=== PATIENT | female | born 1960 | race African-American/Black ===

== ENCOUNTER 2017-03-05 13:32 | Inpatient (IN) ==
[2017-03-05] MEDS ORDERED: METOPROLOL TARTRATE 5 MG/5 ML VIAL IV STA ×2 (14:39→18:38)
[2017-03-05] MEDS ORDERED: METOPROLOL TARTRATE 5 MG/5 ML VIAL IV ONE ×2 (14:56→18:29)
[2017-03-05 15:18] LABS: Basophils # 0.1 10*3/uL (0.0-0.2); Basophils % 0.7 % (0.0-0.8); Eosinophils # 0.1 10*3/uL (0.0-0.87); Eosinophils % 0.8 % (0.00-10.9); Hematocrit 44.6 VOL% (35.7-47.0); Immature Granulocytes % 0.3 %; Immature Granulocytes Absolute 0.02 #; Lymphocytes # 1.6 10*3/uL (1.4-4.0); Lymphocytes % 20.8 % (21.3-54.2); Mean Corpuscular HGB Conc 33.6 GM/DL (32-36); Mean Corpuscular Hemoglobin 27 PG (27-34); Mean Corpuscular Volume 80.9 FL (87-102); Mean Platelet Volume 10.5 FL (9.6-12.0); Monocytes # 0.4 10*3/uL (0.11-0.8); Monocytes % 5.9 % (1.7-12.7); Neutrophils # 5.4 10*3/uL (1.4-7.4); Neutrophils % 71.5 % (38.7-73.9); Platelet Count 291 T/CUMM (130-400); Red Blood Count 5.51 MC/CUMM (3.8-5.5); Red Cell Distribution Width 13.9 % (9.3-17.3); White Blood Count 7.5 T/CUMM (4-12)
[2017-03-05 15:28] LABS: INR 1.1; PT Patient Result 11.3 SECS; Partial Thromboplastin Time 27.3 SECS (0-40)
[2017-03-05 15:42] LABS: Alanine Aminotransferase 32 U/L (13-56); Albumin 4.3 G/DL (3.4-5.0); Alkaline Phosphatase 140 U/L (45-117); Aspartate Amino Transferase 22 U/L (0-37); Calcium 9.6 MG/DL (8.5-10.1); Total Protein 8.6 G/DL (6.4-8.3)
[2017-03-05 15:43] LABS: Blood Urea Nitrogen 13 MG/DL (7-18); Glucose 248 MG/DL (74-106); Osmolality,Calculated 282.7 MOS/KG (273-304); Potassium 3.5 MMOL/L (3.5-5.1); Sodium 138 MMOL/L (136-145); Troponin I Only < 0.015 NG/ML (0.00-0.045)
[2017-03-05] MEDS ORDERED: DOCUSATE SODIUM 100 MG CAPSULE PO PRN (18:00)
[2017-03-05] MEDS ORDERED: LACTULOSE 20 GM/30 ML UDCUP PO PRN (18:00)
[2017-03-05] MEDS ORDERED: ZALEPLON 5 MG CAPSULE PO PRN (18:00)
[2017-03-05] MEDS ORDERED: MAGNESIUM SULF RIDER 4 GM in PREMIX 1 EACH IV PRN (18:00)
[2017-03-05] MEDS ORDERED: ACETAMINOPHEN 325 MG TABLET PO PRN (18:00)
[2017-03-05] MEDS ORDERED: POTASSIUM CHLORIDE RIDER 20 MEQ in PREMIX 1 EACH IV PRN (18:00)
[2017-03-05] MEDS ORDERED: ONDANSETRON 4 MG/2 ML VIAL IV PRN (18:00)
[2017-03-05] MEDS ORDERED: POTASSIUM CHLORIDE RIDER 10 MEQ in PREMIX 1 EACH IV PRN (18:00)
[2017-03-05] MEDS ORDERED: MAGNESIUM SULF RIDER 2 GM in PREMIX 1 EACH IV PRN (18:00)
[2017-03-05] MEDS ORDERED: FUROSEMIDE 40 MG/4 ML VIAL IV STA (18:06)
[2017-03-05] MEDS ORDERED: FUROSEMIDE 40 MG/4 ML VIAL ONE (18:13)
[2017-03-05] MEDS ORDERED: POTASSIUM CHLORIDE 20 MEQ TABLET PO STA (18:15)
[2017-03-05] MEDS ORDERED: POTASSIUM CHLORIDE 20 MEQ TABLET PO ONE (18:29)
[2017-03-05] MEDS: ROSUVASTATIN 20 MG TABLET PO SCH (21:12)
[2017-03-05] MEDS: ENOXAPARIN 40 MG/0.4 ML SYRINGE SUBCUT SCH (21:12)
[2017-03-05] MEDS: INSULIN REGULAR 100 UNIT/ML SUBCUT SCH (21:18)
[2017-03-05] MEDS: INSULIN GLARGINE 100 UNIT/ML SUBCUT SCH (21:18)
[2017-03-06] MEDS ORDERED: ceFAZolin 1,000 MG in SYRINGE 1 EACH IV ONE (06:00)
[2017-03-06] MEDS ORDERED: ceFAZolin 1,000 MG VIAL IRRIG ONE (06:00)
[2017-03-06 06:04] LABS: Basophils % 0.4 % (0.0-0.8); Eosinophils # 0.2 10*3/uL (0.0-0.87); Eosinophils % 1.9 % (0.00-10.9); Hematocrit 42.9 VOL% (35.7-47.0); Hemoglobin 14.3 GM/DL (12.0-16.0); Immature Granulocytes % 0.2 %; Immature Granulocytes Absolute 0.02 #; Lymphocytes # 2.4 10*3/uL (1.4-4.0); Lymphocytes % 29.5 % (21.3-54.2); Mean Corpuscular HGB Conc 33.3 GM/DL (32-36); Mean Corpuscular Hemoglobin 27 PG (27-34); Mean Platelet Volume 10.6 FL (9.6-12.0); Monocytes # 0.7 10*3/uL (0.11-0.8); Monocytes % 8.8 % (1.7-12.7); Neutrophils # 4.9 10*3/uL (1.4-7.4); Neutrophils % 59.2 % (38.7-73.9); Platelet Count 285 T/CUMM (130-400); Red Blood Count 5.23 MC/CUMM (3.8-5.5); Red Cell Distribution Width 14.1 % (9.3-17.3); White Blood Count 8.3 T/CUMM (4-12)
[2017-03-06 06:36] LABS: Calcium 9.3 MG/DL (8.5-10.1); Osmolality,Calculated 282.4 MOS/KG (273-304); Potassium 3.4 MMOL/L (3.5-5.1)
[2017-03-06] MEDS ORDERED: LIDOCAINE 1% 20 ML VIAL ONE (07:47)
[2017-03-06] MEDS ORDERED: ceFAZolin 1,000 MG VIAL ONE (07:47)
[2017-03-06] MEDS ORDERED: HEPARIN DRIP 25,000 UNITS/500 ML PREMIX IV ONE (07:47)
[2017-03-06] MEDS ORDERED: LIRAGLUTIDE SUBCUT SCH (09:00)
[2017-03-06] MEDS ORDERED: TISSUE ADHESIVE 1 EACH APPLICATOR TOP ONE (10:44)
[2017-03-06] MEDS ORDERED: oxyCODONE/ACETAMINOPHEN 5-325 MG TABLET PO PRN (10:52)
[2017-03-06] MEDS ORDERED: PHENYLEPHRINE DRIP 20 MG/250 ML PREMIX IV ONE (11:26)
[2017-03-06] MEDS ORDERED: PROPOFOL 200 MG/20 ML VIAL IV ONE (11:26)
[2017-03-06] MEDS ORDERED: SODIUM CHLORIDE 0.9% 1,000 ML IV ONE (11:27)
[2017-03-06] MEDS ORDERED: fentaNYL 100 MCG/2 ML VIAL ONE (11:27)
[2017-03-06] MEDS ORDERED: MIDAZOLAM 2 MG/2 ML VIAL ONE (11:27)
[2017-03-06] MEDS ORDERED: KETAMINE 500 MG/10 ML VIAL ONE (11:27)
[2017-03-06] MEDS: INSULIN REGULAR 100 UNIT/ML SUBCUT SCH ×4 (12:34→21:26)
[2017-03-06] MEDS: LOSARTAN 25 MG TABLET PO SCH (12:35)
[2017-03-06] MEDS: ASPIRIN EC 81 MG TABLET PO SCH (12:35)
[2017-03-06] MEDS: PANTOPRAZOLE 40 MG TABLET PO SCH (12:36)
[2017-03-06] MEDS: METOPROLOL SUCCINATE XL 50 MG TABLET PO SCH (12:36)
[2017-03-06] MEDS: ceFAZolin 1,000 MG in SYRINGE 1 EACH IV SCH (16:43)
[2017-03-06] MEDS: ROSUVASTATIN 20 MG TABLET PO SCH (21:25)
[2017-03-06] MEDS: INSULIN GLARGINE 100 UNIT/ML SUBCUT SCH (21:26)
[2017-03-06] MEDS: ENOXAPARIN 40 MG/0.4 ML SYRINGE SUBCUT SCH (21:27)
[2017-03-07] MEDS: ceFAZolin 1,000 MG in SYRINGE 1 EACH IV SCH (01:10)
[2017-03-07 05:44] LABS: Basophils # 0.1 10*3/uL (0.0-0.2); Basophils % 0.5 % (0.0-0.8); Eosinophils # 0.2 10*3/uL (0.0-0.87); Eosinophils % 2.2 % (0.00-10.9); Hematocrit 42.6 VOL% (35.7-47.0); Hemoglobin 14.7 GM/DL (12.0-16.0); Immature Granulocytes % 0.3 %; Immature Granulocytes Absolute 0.03 #; Lymphocytes # 2.1 10*3/uL (1.4-4.0); Lymphocytes % 21.4 % (21.3-54.2); Mean Corpuscular HGB Conc 34.5 GM/DL (32-36); Mean Corpuscular Hemoglobin 28 PG (27-34); Mean Corpuscular Volume 81.3 FL (87-102); Mean Platelet Volume 10.9 FL (9.6-12.0); Monocytes # 0.9 10*3/uL (0.11-0.8); Monocytes % 9.4 % (1.7-12.7); Neutrophils # 6.4 10*3/uL (1.4-7.4); Neutrophils % 66.2 % (38.7-73.9); Platelet Count 277 T/CUMM (130-400); Red Blood Count 5.24 MC/CUMM (3.8-5.5); Red Cell Distribution Width 14.2 % (9.3-17.3); White Blood Count 9.7 T/CUMM (4-12)
[2017-03-07 06:17] LABS: Calcium 9.1 MG/DL (8.5-10.1); Osmolality,Calculated 285.4 MOS/KG (273-304); Potassium 3.6 MMOL/L (3.5-5.1)
[2017-03-07] MEDS: PANTOPRAZOLE 40 MG TABLET PO SCH (08:43)
[2017-03-07] MEDS: LOSARTAN 25 MG TABLET PO SCH (08:43)
[2017-03-07] MEDS: ASPIRIN EC 81 MG TABLET PO SCH (08:43)
[2017-03-07] MEDS: INSULIN REGULAR 100 UNIT/ML SUBCUT SCH ×2 (08:43→12:36)
[2017-03-07] MEDS: METOPROLOL SUCCINATE XL 50 MG TABLET PO SCH (08:44)
[2017-03-07 12:13] VITALS: BP 129/73
[2017-03-07] MEDS ORDERED: METOPROLOL SUCCINATE XL 50 MG TABLET PO SCH (21:00)
== END 2017-03-07 15:25 | disposition home or self-care (01) | DRG 227 ==
LOC: N.ED 13:32 → N.EDINP 18:00 → N.TELEN 20:05
PROVIDERS: ADMIT Internal Medicine Clinical Cardiac Electrophysiology; ATTEND Internal Medicine Clinical Cardiac Electrophysiology

== ENCOUNTER 2017-04-17 03:04 | Inpatient (IN) ==
[2017-04-17] MEDS ORDERED: hydrALAZINE 20 MG/1 ML VIAL IV STA (03:39)
[2017-04-17] MEDS ORDERED: hydrALAZINE 20 MG/1 ML VIAL ONE (04:31)
[2017-04-17 04:59] LABS: Basophils # 0.1 10*3/uL (0.0-0.2); Basophils % 0.8 % (0.0-0.8); Eosinophils # 0.2 10*3/uL (0.0-0.87); Eosinophils % 2.9 % (0.00-10.9); Hematocrit 42.2 VOL% (35.7-47.0); Hemoglobin 14.3 GM/DL (12.0-16.0); Immature Granulocytes % 0.2 %; Immature Granulocytes Absolute 0.01 #; Lymphocytes # 2.2 10*3/uL (1.4-4.0); Lymphocytes % 35.7 % (21.3-54.2); Mean Corpuscular HGB Conc 33.9 GM/DL (32-36); Mean Corpuscular Hemoglobin 28 PG (27-34); Mean Corpuscular Volume 83.2 FL (87-102); Monocytes # 0.6 10*3/uL (0.11-0.8); Monocytes % 9.4 % (1.7-12.7); Neutrophils # 3.1 10*3/uL (1.4-7.4); Platelet Count 256 T/CUMM (130-400); Red Blood Count 5.07 MC/CUMM (3.8-5.5); Red Cell Distribution Width 13.8 % (9.3-17.3); White Blood Count 6.2 T/CUMM (4-12)
[2017-04-17 05:04] LABS: PT Patient Result 10.1 SECS; Partial Thromboplastin Time 25.4 SECS (0-40)
[2017-04-17 05:16] LABS: Alanine Aminotransferase 40 U/L (13-56); Albumin 3.6 G/DL (3.4-5.0); Alkaline Phosphatase 183 U/L (45-117); Aspartate Amino Transferase 33 U/L (0-37); Blood Urea Nitrogen 14 MG/DL (7-18); Calcium 9.7 MG/DL (8.5-10.1); Glucose 284 MG/DL (74-106); Potassium 4.2 MMOL/L (3.5-5.1); Sodium 136 MMOL/L (136-145); Total Protein 7.6 G/DL (6.4-8.3); Troponin I Only < 0.015 NG/ML (0.00-0.045)
[2017-04-17] MEDS ORDERED: ASPIRIN EC 325 MG TABLET PO STA (05:21)
[2017-04-17] MEDS ORDERED: GLUCAGON 1 MG VIAL IM PRN ×2 (06:07→06:12)
[2017-04-17] MEDS ORDERED: ONDANSETRON 4 MG/2 ML VIAL IV PRN (06:07)
[2017-04-17] MEDS ORDERED: DEXTROSE 50% 25 GM/50 ML VIAL IV PRN ×2 (06:07→06:12)
[2017-04-17] MEDS ORDERED: ATORVASTATIN 40 MG TABLET PO STA (06:25)
[2017-04-17] MEDS ORDERED: ASPIRIN 325 MG TABLET ONE (07:24)
[2017-04-17] MEDS: SODIUM CHLORIDE 0.45% 1,000 ML IV SCH (07:30)
[2017-04-17] MEDS ORDERED: ENOXAPARIN 40 MG/0.4 ML SYRINGE ONE (07:37)
[2017-04-17 07:40] LABS: Apearance,Urine CLEAR (Clear); Bacteria,Urine Occasional /HPF (Few); Bilirubin,Urine Negative (Negative); Blood, Urine Negative (Negative); Glucose,Urine (UA) >=500 mg/dL (Negative); Ketones,Urine Negative (Negative); Nitrite,Urine Negative (Negative); Protein,Urine Negative; RBC,Urine <1 /HPF (0-4); Squamous Epithelial Cell,Urine Occasional /HPF (0-10); Urine Color Straw (Yellow); Urine Specific Gravity 1.003 (1.001-1.035); Urine Urobilinogen < 2.0 EU/DL (0.2-1.0); WBC,Urine 2 /HPF (0-6)
[2017-04-17] MEDS: ENOXAPARIN 40 MG/0.4 ML SYRINGE SUBCUT SCH (07:40)
[2017-04-17 07:49] LABS: Barbiturates Screen,Urine Negative (Negative); Benzodiazepines Screen,Urine Negative (Negative); Cannabinoid Screen,Urine Negative (Negative); Opiate Screen,Urine Negative (Negative); Phencyclidine Screen,Urine Negative (Negative)
[2017-04-17] MEDS ORDERED: INSULIN REGULAR 100 UNIT/ML ONE ×2 (08:18→12:07)
[2017-04-17] MEDS: INSULIN REGULAR 100 UNIT/ML SUBCUT SCH ×4 (08:32→21:27)
[2017-04-17] MEDS ORDERED: ASPIRIN EC 81 MG TABLET PO SCH (09:00)
[2017-04-17] MEDS ORDERED: PANTOPRAZOLE 40 MG TABLET PO ONE (09:10)
[2017-04-17] MEDS ORDERED: amLODIPine 5 MG TABLET ONE (09:11)
[2017-04-17] MEDS: amLODIPine 5 MG TABLET PO SCH (09:27)
[2017-04-17] MEDS: PANTOPRAZOLE 40 MG TABLET PO SCH (09:28)
[2017-04-17] MEDS: METOPROLOL SUCCINATE XL 25 MG TABLET PO SCH (09:56)
[2017-04-17] MEDS: LOSARTAN 25 MG TABLET PO SCH (09:56)
[2017-04-17] MEDS ORDERED: ATORVASTATIN 40 MG TABLET PO SCH (21:00)
[2017-04-17] MEDS ORDERED: INSULIN GLARGINE 100 UNIT/ML SUBCUT SCH (21:00)
[2017-04-18 05:22] LABS: Basophils % 0.5 % (0.0-0.8); Eosinophils # 0.2 10*3/uL (0.0-0.87); Eosinophils % 3.4 % (0.00-10.9); Hematocrit 40.9 VOL% (35.7-47.0); Hemoglobin 13.7 GM/DL (12.0-16.0); Immature Granulocytes % 0.4 %; Immature Granulocytes Absolute 0.02 #; Lymphocytes # 2.1 10*3/uL (1.4-4.0); Lymphocytes % 36.8 % (21.3-54.2); Mean Corpuscular HGB Conc 33.5 GM/DL (32-36); Mean Corpuscular Hemoglobin 28 PG (27-34); Mean Corpuscular Volume 83.8 FL (87-102); Mean Platelet Volume 10.9 FL (9.6-12.0); Monocytes # 0.6 10*3/uL (0.11-0.8); Monocytes % 9.8 % (1.7-12.7); Neutrophils # 2.8 10*3/uL (1.4-7.4); Neutrophils % 49.1 % (38.7-73.9); Platelet Count 236 T/CUMM (130-400); Red Blood Count 4.88 MC/CUMM (3.8-5.5); Red Cell Distribution Width 13.7 % (9.3-17.3); White Blood Count 5.6 T/CUMM (4-12)
[2017-04-18 05:50] LABS: Calcium 8.6 MG/DL (8.5-10.1); Osmolality,Calculated 284.3 MOS/KG (273-304); Potassium 3.6 MMOL/L (3.5-5.1)
[2017-04-18] MEDS ORDERED: ASPIRIN EC 81 MG TABLET PO SCH (09:00)
[2017-04-18] MEDS: amLODIPine 5 MG TABLET PO SCH (09:54)
[2017-04-18] MEDS: ENOXAPARIN 40 MG/0.4 ML SYRINGE SUBCUT SCH (09:54)
[2017-04-18] MEDS: INSULIN REGULAR 100 UNIT/ML SUBCUT SCH ×2 (09:54→13:38)
[2017-04-18] MEDS: METOPROLOL SUCCINATE XL 25 MG TABLET PO SCH (09:55)
[2017-04-18] MEDS: LOSARTAN 25 MG TABLET PO SCH (09:55)
[2017-04-18] MEDS: PANTOPRAZOLE 40 MG TABLET PO SCH (09:55)
[2017-04-18 12:24] VITALS: BP 130/75
[2017-04-18] MEDS: SODIUM CHLORIDE 0.45% 1,000 ML IV SCH (15:04)
== END 2017-04-18 14:20 | disposition home or self-care (01) | DRG 69 ==
LOC: N.ED 03:04 → N.EDINP 06:07 → N.4E 13:00
PROVIDERS: ADMIT Internal Medicine Geriatric Medicine; ATTEND Internal Medicine Geriatric Medicine

== ENCOUNTER 2018-12-15 03:37 | Observation (INO) ==
[2018-12-15] MEDS ORDERED: ASPIRIN CHEW 81 MG TABLET PO STA (04:14)
[2018-12-15] MEDS ORDERED: ONDANSETRON 4 MG/2 ML VIAL IV PRN (04:14)
[2018-12-15] MEDS ORDERED: NITROGLYCERIN SL 0.4 MG TABLET SL PRN (07:55)
[2018-12-15] MEDS ORDERED: CYCLOBENZAPRINE 10 MG TABLET PO PRN (07:55)
[2018-12-15] MEDS: PANTOPRAZOLE 40 MG VIAL IV SCH (08:25)
[2018-12-15] MEDS: ROSUVASTATIN 20 MG TABLET PO SCH (08:25)
[2018-12-15] MEDS: cloNIDine 0.1 MG TABLET PO SCH ×2 (08:25→20:20)
[2018-12-15] MEDS: METOPROLOL SUCCINATE XL 100 MG TABLET PO SCH ×2 (08:25→20:20)
[2018-12-15] MEDS: ASPIRIN EC 81 MG TABLET PO SCH (08:25)
[2018-12-15] MEDS: LOSARTAN 50 MG TABLET PO SCH (08:25)
[2018-12-15] MEDS ORDERED: PANTOPRAZOLE 40 MG TABLET PO SCH (09:00)
[2018-12-15] MEDS ORDERED: ALBUTEROL 2.5 MG/3 ML NEB RESP TX PRN (11:00)
[2018-12-15] MEDS ORDERED: GLUCAGON 1 MG VIAL IM PRN (12:34)
[2018-12-15] MEDS ORDERED: DEXTROSE 10% 25 GM/250 ML BAG IV PRN (12:34)
[2018-12-15] MEDS ORDERED: NAPROXEN 500 MG TABLET PO PRN (12:35)
[2018-12-15] MEDS: INSULIN REGULAR 100 UNIT/ML SUBCUT SCH ×2 (16:18→22:02)
[2018-12-15] MEDS ORDERED: sitaGLIPtin 100 MG TABLET PO SCH (17:00)
[2018-12-15] MEDS ORDERED: INSULIN GLARGINE 100 UNIT/ML SUBCUT SCH (21:00)
[2018-12-16 04:50] LABS: Basophils % 0.6 % (0.0-0.8); Eosinophils # 0.2 10*3/uL (0.0-0.87); Eosinophils % 2.9 % (0.00-10.9); Hemoglobin 12.7 GM/DL (12.0-16.0); Immature Granulocytes % 0.2 %; Immature Granulocytes Absolute 0.01 #; Lymphocytes # 2.5 10*3/uL (1.4-4.0); Mean Corpuscular HGB Conc 33.4 GM/DL (32-36); Mean Corpuscular Volume 87.6 FL (87-102); Mean Platelet Volume 10.7 FL (9.6-12.0); Neutrophils % 48.3 % (38.7-73.9); Platelet Count 247 T/CUMM (130-400); Red Blood Count 4.34 MC/CUMM (3.8-5.5); Red Cell Distribution Width 13.3 % (9.3-17.3); White Blood Count 6.5 T/CUMM (4-12)
[2018-12-16 05:15] LABS: Albumin 3.3 G/DL (3.4-5.0); Bilirubin,Total 0.4 MG/DL (0.2-1.0); Osmolality,Calculated 286.3 MOS/KG (273-304)
[2018-12-16] MEDS: LOSARTAN 50 MG TABLET PO SCH (08:24)
[2018-12-16] MEDS: ROSUVASTATIN 20 MG TABLET PO SCH (08:25)
[2018-12-16] MEDS: cloNIDine 0.1 MG TABLET PO SCH (08:25)
[2018-12-16] MEDS: INSULIN REGULAR 100 UNIT/ML SUBCUT SCH ×2 (08:25→11:47)
[2018-12-16] MEDS: PANTOPRAZOLE 40 MG VIAL IV SCH (08:25)
[2018-12-16] MEDS: METOPROLOL SUCCINATE XL 100 MG TABLET PO SCH (08:25)
[2018-12-16] MEDS: ASPIRIN EC 81 MG TABLET PO SCH (08:25)
[2018-12-16 12:05] VITALS: BP 111/61
== END 2018-12-16 14:47 | disposition home or self-care (01) ==
LOC: EDUNIT# → N.EDINP 03:37 → N.ED 03:37 → N.2W 04:34
PROVIDERS: ADMIT Family Medicine; ATTEND Family Medicine